=== PATIENT | male | born 1960 | race Caucasian/White ===

== ENCOUNTER 2021-01-28 03:29 | Emergency (ER) | payer MEDICARE ==
[2021-01-28] MEDS ORDERED: Kenalog-40 IM ONE (03:56)
[2021-01-28] MEDS ORDERED: Kenalog-40 ONE (03:58)
[2021-01-28] MEDS ORDERED: BENADRYL 25 MG CAPSULE PO ONE (04:01)
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
[2021-01-28] MEDS ORDERED: BENADRYL 25 MG CAPSULE ONE (04:04)
[2021-01-28 04:16] VITALS: BP 134/88; PULSE 77; O2SAT 96
== END 2021-01-28 04:14 | disposition home or self-care (01) ==
LOC: ED 03:29
DX: L30.9 Dermatitis, unspecified (principal)
CPT/HCPCS: 96372; 99283; J3301; A9270-GY

== ENCOUNTER 2021-02-10 16:54 | Emergency (ER) | payer MEDICARE ==
[2021-02-10 18:05] VITALS: O2SAT 99
[2021-02-10] MEDS ORDERED: TORAdol 30 mg Injection ONE (18:22)
[2021-02-10] MEDS ORDERED: solu-MEDROL 125 MG ONE (18:22)
[2021-02-10] MEDS: TORAdol 30 mg Injection IV ONE (18:25)
[2021-02-10] MEDS: solu-MEDROL 125 MG IV ONE (18:25)
[2021-02-10 18:52] LABS: Absolute Neutrophil Ct (ANC) 5.59 (1.4-6.9); BASOPHIL % 0.3 % (0.0-0.4); Basophil (Absolute #) 0.02 (0-0.4); Eosinophil (Absolute #) 0.16 (0-0.5); Hematocrit 40.3 % (42-50); Hemoglobin 13.2 gm/dl (12.5-18.0); Lymphocytes % 21.3 % (24.0-44.0); Mean Cell Volume 87.8 fl (78-100); Mean Corpuscular Hemoglobin 28.8 pg (26-32); Mean Corpuscular Hgb Concent. 32.8 g/dl (32-36); Mean Platelet Volume 8.6 fl (7.5-11.0); Monocyte (Absolute #) 0.52 (0.0-1.3); Monocytes % 6.5 % (0.0-12.0); Neutrophil % 69.9 % (36.0-66.0); Platelet Count 216 K/mm3 (150-450); Red Blood Count 4.59 M/mm3 (4.1-5.6); Red Cell Distribution Width 13.6 % (11.5-14.0)
[2021-02-10 18:56] LABS: ALKALINE PHOSPHATASE 108 U/L (38-126); ANION GAP 9.4 MEQ/L (5-15); BLOOD UREA NITROGEN 15 mg/dL (9-20); CHLORIDE 104 mmol/L (98-107); Calcium 9.1 mg/dL (8.4-10.2); Carbon Dioxide 29 mmol/L (22-30); Creatinine 1 0.76 mg/dL (0.66-1.25); EST GLOMERULAR FILTRATION RATE > 60.0 ML/MIN; Glucose 99 mg/dL (74-106); Potassium 3.7 mmol/L (3.5-5.1); SGOT/AST 48 U/L (17-59); SGPT/ALT 30 U/L (0-50); SODIUM 139 mmol/L (137-145); Total Protein 7.2 g/dL (6.3-8.2); Uric Acid 6.6 mg/dL (3.5-7.2)
--- NOTE | 2021-02-10 19:27 | XRAY ---
Exam: 3 views of the right wrist from 02/10/2021. Comparison: None. Indication: No known injury, right wrist pain on medial side for 4 days. Findings: AP, oblique, and lateral radiographs of the right wrist were obtained. I see no acute fracture or dislocation. The radiocarpal joint space appears unremarkable. At least a couple small intraosseous cysts are noted within the distal pole of the scaphoid bone. The remainder of the carpus appears unremarkable. The carpal joint spaces appear unremarkable. No periarticular soft tissue calcifications or radiopaque soft tissue foreign body is seen. There is a negative ulnar variance of about 1 mm. Impression: 1. No acute right wrist fracture or dislocation is seen. No other significant focal bone or joint abnormality is seen.
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
[2021-02-10 20:21] VITALS: BP 182/92; PULSE 78
== END 2021-02-10 20:27 | disposition home or self-care (01) ==
LOC: ED 16:54
DX: M10.9 Gout, unspecified (principal); R70.0 Elevated erythrocyte sedimentation rate
CPT/HCPCS: 36000; 36415; 73110; 80053; 84550; 85025; 85652; 86140; 96374; 96375; 99284; J1642; J1885; J2930

== ENCOUNTER 2022-05-29 21:22 | Observation (INO) | payer MEDICARE, OTHER ==
[2022-05-29] MEDS ORDERED: TYLENOL EXTRA STRENGTH 500 MG PO ONE (21:28)
[2022-05-29] MEDS ORDERED: TYLENOL EXTRA STRENGTH 500 MG ONE (21:32)
[2022-05-29 21:50] LABS: Absolute Neutrophil Ct (ANC) 8.03 x10^3/uL (1.4-6.9); Basophil (Absolute #) 0.02 x10^3/uL (0-0.4); Eosinophil (Absolute #) 0.09 x10^3/uL (0-0.5); Hematocrit 42.9 % (42-50); Hemoglobin 14.3 g/dL (12.5-18.0); Lymphocyte (Absolute #) 0.44 x10^3/uL (1.0-4.6); Mean Corpuscular Hemoglobin 28.7 pg (26-32); Mean Corpuscular Hgb Concent. 33.3 g/dL (32-36); Monocyte (Absolute #) 0.21 x10^3/uL (0.0-1.3); Monocytes % 2.4 % (0.0-12.0); Neutrophil % 91.1 % (36.0-66.0); Platelet Count 151 x10^3/uL (150-450); Red Blood Count 4.99 x10^6/uL (4.1-5.6); White Blood Count 8.8 x10^3/uL (4.0-10.5)
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
[2022-05-29 22:03] LABS: INR 1.1 (0.8-3.0); PROTIME 11.6 SECONDS (9.4-12.5)
[2022-05-29 22:09] LABS: ALBUMIN 4.3 g/dL (3.5-5.0); ALKALINE PHOSPHATASE 137 U/L (38-126); ANION GAP 11.6 MEQ/L (5-15); BLOOD UREA NITROGEN 12 mg/dL (9-20); CHLORIDE 101 mmol/L (98-107); Carbon Dioxide 27 mmol/L (22-30); Creatinine 1 0.92 mg/dL (0.66-1.25); EST GLOMERULAR FILTRATION RATE > 60.0 ML/MIN; Glucose 111 mg/dL (74-106); NT PRO BNP 86.6 pg/mL (0-900); Potassium 3.9 mmol/L (3.5-5.1); SGOT/AST 31 U/L (17-59); SGPT/ALT 20 U/L (0-50); SODIUM 135 mmol/L (137-145); Total Protein 7.5 g/dL (6.3-8.2)
[2022-05-29 23:14] LABS: INFLUENZA A NEGATIVE (NEGATIVE); INFLUENZA B NEGATIVE (NEGATIVE); RESPIRATORY SYNCTIAL VIRUS NEGATIVE (Negative); SARS-CoV-2 Xpert Express NEGATIVE (NEGATIVE)
[2022-05-30] MEDS ORDERED: ROCEPHIN 1 Gm-D5w 50 ml Bag** 1 G/50 ML IVPB IV STA (00:06)
[2022-05-30] MEDS ORDERED: Sodium Chloride 0.9% 1000 ML 1,000 ML IV STA (00:07)
[2022-05-30] MEDS ORDERED: ROCEPHIN 1 Gm-D5w 50 ml Bag** 1 G/50 ML IVPB IV ONE (00:34)
[2022-05-30] MEDS ORDERED: Sodium Chloride 0.9% 1000 ML 1,000 ML ONE (00:34)
[2022-05-30] MEDS ORDERED: Zofran 4 MG/2 ML VIAL IV PRN (01:08)
[2022-05-30] MEDS ORDERED: DUONEB 0.5-3 MG/3 ml Neb IH PRN (01:08)
[2022-05-30] MEDS: Sodium Chloride 0.9% 1000 ML 1,000 ML IV SCH ×2 (02:34→13:38)
[2022-05-30] MEDS: TYLENOL 325 MG PO PRN ×2 (03:21→14:38)
[2022-05-30] MEDS ORDERED: VENTOLIN COMMON CANISTER IH PRN (03:42)
[2022-05-30 05:47] LABS: Basophil (Absolute #) 0.03 x10^3/uL (0-0.4); Eosinophil % 0.1 % (0.00-5.0); Eosinophil (Absolute #) 0.02 x10^3/uL (0-0.5); Hematocrit 41.2 % (42-50); Hemoglobin 13.6 g/dL (12.5-18.0); Lymphocyte (Absolute #) 0.74 x10^3/uL (1.0-4.6); Mean Cell Volume 86.7 fL (78-100); Mean Corpuscular Hemoglobin 28.6 pg (26-32); Mean Platelet Volume 9.5 fL (7.5-11.0); Monocyte (Absolute #) 0.75 x10^3/uL (0.0-1.3); Monocytes % 5.1 % (0.0-12.0); Platelet Count 130 x10^3/uL (150-450); Red Blood Count 4.75 x10^6/uL (4.1-5.6); White Blood Count 14.7 x10^3/uL (4.0-10.5)
[2022-05-30 06:07] LABS: ALBUMIN 3.4 g/dL (3.5-5.0); ALKALINE PHOSPHATASE 106 U/L (38-126); ANION GAP 10.4 MEQ/L (5-15); BLOOD UREA NITROGEN 17 mg/dL (9-20); CHLORIDE 103 mmol/L (98-107); Calcium 7.9 mg/dL (8.4-10.2); Carbon Dioxide 25 mmol/L (22-30); EST GLOMERULAR FILTRATION RATE > 60.0 ML/MIN; Glucose 99 mg/dL (74-106); Potassium 4.2 mmol/L (3.5-5.1); SGOT/AST 22 U/L (17-59); SGPT/ALT 16 U/L (0-50); SODIUM 134 mmol/L (137-145); Total Protein 6.2 g/dL (6.3-8.2)
[2022-05-30] MEDS: PROTONIX 40 MG IV IV SCH (08:21)
[2022-05-30] MEDS: Zithromax 500 MG/ 250 ML NaCl Premix 500 MG/250 ML IVPB IV SCH (08:21)
[2022-05-30] MEDS ORDERED: Hydromorphone 1 mg/ml Injection IV ONE (08:47)
--- NOTE | 2022-05-30 08:52 | XRAY ---
Indication: Chest pain. Dyspnea. Multiple contiguous images obtained through the chest without contrast. Comparison: None Lung bases clear. Heart not enlarged. Lungs demonstrates moderate diffuse pulmonary emphysema, mild biapical pleural parenchymal fibrosis/scarring and small right lower lobe calcified granulomas. Moderate left lower lobe and lesser degree right upper lobe patchy airspace disease without effusion. Heart not enlarged with incidental right Port-A-Cath. Aorta is mildly arteriosclerotic without aneurysm. Tiny bilateral hilar calcified granulomas. No pathologic mediastinal lymphadenopathy. Bony thorax intact with minimal degenerative changes throughout the spine. Limited upper abdomen demonstrates cholecystectomy clips. Impression: 1. Left lower lobe and right upper lobe airspace disease. 2. Chronic findings including pulmonary emphysema, biapical fibrosis/scarring, arteriosclerotic disease, and old granulomatous disease. Comment: Preliminary interpretation made by C. No critical discrepancy.
--- NOTE | 2022-05-30 08:54 | XRAY ---
Indication: Dyspnea. Comparison: June 18, 2008 Portable chest again hyperinflated with new left perihilar and lesser degree right apical airspace disease without consolidation/large effusion. Stable peripheral right lung calcified granulomas. Heart not enlarged with new right Port-A-Cath. Bony thorax intact.
[2022-05-30] MEDS ORDERED: ENOXAPARIN SODIUM SQ SCH (10:00)
[2022-05-30] MEDS ORDERED: ROCEPHIN 1 Gm-D5w 50 ml Bag** 1 G/50 ML IVPB IV SCH ×2 (10:00→22:00)
[2022-05-30] MEDS: TORAdol 30 mg Injection IV SCH ×2 (11:05→21:39)
--- NOTE | 2022-05-30 14:23 | XRAY ---
Indication: Left rib pain. No known injury. Comparison: CT chest one day earlier. 2 view left ribs demonstrates CT proven minimal degenerative changes throughout visualized spine, left lower lobe airspace disease, tiny left base calcified granulomas, right Port-A-Cath, and cholecystectomy clips. No new/acute abnormalities.
[2022-05-30] MEDS ORDERED: MEDICATION INTERVENTION MC SCH (15:00)
[2022-05-30] MEDS ORDERED: NON-FORMULARY ITEM (Buprenorphine Hcl/Naloxone Hcl [Suboxone 8 Mg-2 Mg Sl Film] 1 EACH Fil SL SCH (15:00)
[2022-05-30 22:13] LABS: Appearance SLIGHTLY CLOUDY (CLEAR); Bilirubin SMALL (NEGATIVE); Glucose NEGATIVE (NEGATIVE); Ketones NEGATIVE (NEGATIVE); Protein,Urine Dip TRACE (Negative); RBC NEGATIVE Ery/ul (0-5); Specific Gravity >=1.030 (1.005-1.025); Urobilinogen 0.2 mg/dL (0-1)
[2022-05-30 22:14] LABS: Dipstick done @ ? MAIN LAB; Nitrite POSITIVE (NEGATIVE)
[2022-05-30 22:15] LABS: Urine Cultured Indicated? YES
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
[2022-05-30 22:18] LABS: Hyaline Casts 0-2 /LPF (0-2); Mucus MODERATE /HPF (NEGATIVE); RBC 0-2 /HPF (0-2); Sperm PRESENT /HPF (NEGATIVE); WBC 0-2 /HPF (0-5)
[2022-05-31 05:01] LABS: Absolute Neutrophil Ct (ANC) 7.84 x10^3/uL (1.4-6.9); Basophil (Absolute #) 0.02 x10^3/uL (0-0.4); Eosinophil % 2.6 % (0.00-5.0); Eosinophil (Absolute #) 0.25 x10^3/uL (0-0.5); Hematocrit 35.5 % (42-50); Hemoglobin 11.9 g/dL (12.5-18.0); Lymphocyte (Absolute #) 1.05 x10^3/uL (1.0-4.6); Mean Cell Volume 85.5 fL (78-100); Mean Corpuscular Hemoglobin 28.7 pg (26-32); Mean Corpuscular Hgb Concent. 33.5 g/dL (32-36); Mean Platelet Volume 9.7 fL (7.5-11.0); Monocyte (Absolute #) 0.32 x10^3/uL (0.0-1.3); Monocytes % 3.4 % (0.0-12.0); Neutrophil % 82.1 % (36.0-66.0); Platelet Count 122 x10^3/uL (150-450); Red Blood Count 4.15 x10^6/uL (4.1-5.6); Red Cell Distribution Width 14.4 % (11.5-14.0); White Blood Count 9.6 x10^3/uL (4.0-10.5)
[2022-05-31 05:27] LABS: ALBUMIN 2.7 g/dL (3.5-5.0); ALKALINE PHOSPHATASE 99 U/L (38-126); BLOOD UREA NITROGEN 21 mg/dL (9-20); CHLORIDE 109 mmol/L (98-107); Calcium 7.7 mg/dL (8.4-10.2); Carbon Dioxide 23 mmol/L (22-30); Creatinine 1 0.74 mg/dL (0.66-1.25); EST GLOMERULAR FILTRATION RATE > 60.0 ML/MIN; Glucose 96 mg/dL (74-106); SGOT/AST 15 U/L (17-59); SGPT/ALT 12 U/L (0-50); SODIUM 137 mmol/L (137-145); Total Protein 5.3 g/dL (6.3-8.2)
[2022-05-31 05:31] LABS: Potassium 3.2 mmol/L (3.5-5.1)
[2022-05-31] MEDS: Sodium Chloride 0.9% 1000 ML 1,000 ML IV SCH (06:09)
[2022-05-31 06:59] VITALS: O2SAT 98
[2022-05-31 07:06] VITALS: BP 147/67; PULSE 85
[2022-05-31] MEDS ORDERED: Klor Con PO ONE (08:39)
[2022-05-31] MEDS: PROTONIX 40 MG IV IV SCH (09:33)
[2022-05-31] MEDS: Zithromax 500 MG/ 250 ML NaCl Premix 500 MG/250 ML IVPB IV SCH (09:33)
[2022-05-31] MEDS: TORAdol 30 mg Injection IV SCH (09:33)
== END 2022-05-31 09:27 | disposition home or self-care (01) ==
LOC: ED 21:22 → MED SURG 05-30 01:57
PROVIDERS: ADMIT Family Medicine; ATTEND Family Medicine
DX: J18.9 Pneumonia, unspecified organism (principal); E86.9 Volume depletion, unspecified; R07.9 Chest pain, unspecified; R19.7 Diarrhea, unspecified; R53.83 Other fatigue; I10 Essential (primary) hypertension; S29.9XXA Unspecified injury of thorax, initial encounter; Z79.899 Other long term (current) drug therapy; Z20.828 Contact with and (suspected) exposure to other viral communicable diseases; Z72.0 Tobacco use
CPT/HCPCS: 0241U; 36000; 36415; 71045; 71100; 71250; 80053; 81015; 83605; 83880; 84484; 85025; 85610; 85730; 87040; 87086; 93005; 93268; 94760; 96365; 99285; G0378; J0456; J0696; J1170; J1642; J1885; A9270-GY

== ENCOUNTER 2022-06-10 19:45 | Emergency (ER) | payer MEDICARE, OTHER ==
[2022-06-10] MEDS ORDERED: SUBLIMAZE 100 MCG/2 ML IV ONE (20:19)
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
[2022-06-10] MEDS ORDERED: Zofran 4 MG/2 ML VIAL IV ONE (20:20)
[2022-06-10] MEDS ORDERED: Zofran 4 MG/2 ML VIAL ONE (20:25)
[2022-06-10] MEDS ORDERED: SUBLIMAZE 100 MCG/2 ML ONE (20:26)
[2022-06-10 20:31] LABS: Absolute Neutrophil Ct (ANC) 3.13 x10^3/uL (1.4-6.9); Basophil (Absolute #) 0.03 x10^3/uL (0-0.4); Eosinophil % 6.7 % (0.00-5.0); Eosinophil (Absolute #) 0.35 x10^3/uL (0-0.5); Hematocrit 37.3 % (42-50); Hemoglobin 12.3 g/dL (12.5-18.0); Lymphocyte (Absolute #) 1.35 x10^3/uL (1.0-4.6); Lymphocytes % 25.8 % (24.0-44.0); Mean Cell Volume 86.1 fL (78-100); Mean Corpuscular Hemoglobin 28.4 pg (26-32); Mean Platelet Volume 8.5 fL (7.5-11.0); Monocyte (Absolute #) 0.34 x10^3/uL (0.0-1.3); Monocytes % 6.5 % (0.0-12.0); Neutrophil % 59.8 % (36.0-66.0); Platelet Count 374 x10^3/uL (150-450); Red Blood Count 4.33 x10^6/uL (4.1-5.6); Red Cell Distribution Width 12.8 % (11.5-14.0); White Blood Count 5.2 x10^3/uL (4.0-10.5)
[2022-06-10] MEDS ORDERED: TORAdol 30 mg Injection IM ONE (20:31)
[2022-06-10 21:04] LABS: ALBUMIN 3.8 g/dL (3.5-5.0); ALKALINE PHOSPHATASE 133 U/L (38-126); ANION GAP 12.2 MEQ/L (5-15); BLOOD UREA NITROGEN 20 mg/dL (9-20); CHLORIDE 105 mmol/L (98-107); Calcium 8.6 mg/dL (8.4-10.2); Carbon Dioxide 26 mmol/L (22-30); Creatinine 1 0.78 mg/dL (0.66-1.25); EST GLOMERULAR FILTRATION RATE > 60.0 ML/MIN; Glucose 98 mg/dL (74-106); NT PRO BNP 72.7 pg/mL (0-900); SGOT/AST 20 U/L (17-59); SGPT/ALT 17 U/L (0-50); SODIUM 139 mmol/L (137-145); Total Protein 7.2 g/dL (6.3-8.2)
[2022-06-10 21:09] LABS: INFLUENZA A NEGATIVE (NEGATIVE); INFLUENZA B NEGATIVE (NEGATIVE); RESPIRATORY SYNCTIAL VIRUS NEGATIVE (Negative); SARS-CoV-2 Xpert Express NEGATIVE (NEGATIVE)
[2022-06-10 21:12] LABS: INR 1.13 (0.8-3.0); PROTIME 11.8 SECONDS (9.4-12.5)
[2022-06-10 22:20] VITALS: BP 140/85; PULSE 70
--- NOTE | 2022-06-10 22:32 | XRAY ---
Indication: Chest pain, cough, dyspnea. Elevated d-dimer. Multiple contiguous axial images obtained through the chest using 100 cc Isovue 370 contrast and PE protocol. Comparison: May 29, 2022 Good opacification of the pulmonary arteries to include the lobar and segmental branches. No pulmonary embolus. Heart not enlarged again with right Port-A-Cath. Aorta is mildly arteriosclerotic without aneurysm/dissection. Again tiny bilateral hilar calcified granulomas. No pathologic mediastinal/hilar lymphadenopathy. Lungs again demonstrates pulmonary emphysema, biapical pleural parenchymal fibrosis/scarring and small right lower lobe calcified granulomas. Left lower and lesser degree right upper lobe again demonstrates patchy airspace disease, both less than before. No effusion or pneumothorax. Bony thorax intact again with minimal degenerative changes of the spine. Limited upper abdomen again demonstrates cholecystectomy clips. Impression: 1. Negative pulmonary embolus. 2. Improving left lower and right upper lobe pneumonia. 3. Again chronic findings including pulmonary emphysema, biapical fibrous/scarring, arteriosclerotic disease, and old granulomatous disease.. Comment: Preliminary interpretation made by C. No critical discrepancy.
[2022-06-11 01:00] VITALS: O2SAT 97
[2022-06-11 05:06] LABS: PTT 115.3 SECONDS (25.1-36.5)
== END 2022-06-10 22:31 | disposition home or self-care (01) ==
LOC: ED 19:45
DX: J18.9 Pneumonia, unspecified organism (principal); R07.81 Pleurodynia; R06.00 Dyspnea, unspecified; R05.9 Cough, unspecified; I10 Essential (primary) hypertension; J44.9 Chronic obstructive pulmonary disease, unspecified; Z72.0 Tobacco use; Z79.891 Long term (current) use of opiate analgesic; Z20.828 Contact with and (suspected) exposure to other viral communicable diseases
CPT/HCPCS: 0241U; 36000; 36415; 71260; 80053; 83880; 84484; 85025; 85610; 85730; 93005; 96374; 99284; J1642; J2405; J3010

== ENCOUNTER 2022-06-27 16:47 | Emergency (ER) | payer MEDICARE, OTHER ==
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
[2022-06-27] MEDS ORDERED: MORPHINE SULFATE 4 MG INJ IV ONE (17:42)
[2022-06-27] MEDS ORDERED: Zofran 4 MG/2 ML VIAL IV ONE (17:42)
[2022-06-27 17:54] LABS: Absolute Neutrophil Ct (ANC) 4.91 x10^3/uL (1.4-6.9); Basophil (Absolute #) 0.02 x10^3/uL (0-0.4); Eosinophil % 9.2 % (0.00-5.0); Eosinophil (Absolute #) 0.65 x10^3/uL (0-0.5); Hemoglobin 12.2 g/dL (12.5-18.0); Lymphocyte (Absolute #) 1.09 x10^3/uL (1.0-4.6); Lymphocytes % 15.4 % (24.0-44.0); Mean Corpuscular Hemoglobin 28.4 pg (26-32); Mean Platelet Volume 9.7 fL (7.5-11.0); Monocyte (Absolute #) 0.37 x10^3/uL (0.0-1.3); Monocytes % 5.2 % (0.0-12.0); Neutrophil % 69.5 % (36.0-66.0); Platelet Count 166 x10^3/uL (150-450); Red Cell Distribution Width 13.2 % (11.5-14.0); White Blood Count 7.1 x10^3/uL (4.0-10.5)
[2022-06-27] MEDS ORDERED: Zofran 4 MG/2 ML VIAL ONE (17:56)
[2022-06-27] MEDS ORDERED: MORPHINE SULFATE 4 MG INJ ONE (17:56)
[2022-06-27 18:00] LABS: ALBUMIN 4.1 g/dL (3.5-5.0); ALKALINE PHOSPHATASE 128 U/L (38-126); ANION GAP 12.5 MEQ/L (5-15); BLOOD UREA NITROGEN 13 mg/dL (9-20); CHLORIDE 101 mmol/L (98-107); Carbon Dioxide 28 mmol/L (22-30); Creatinine 1 0.85 mg/dL (0.66-1.25); EST GLOMERULAR FILTRATION RATE > 60.0 ML/MIN; Glucose 113 mg/dL (74-106); Potassium 3.7 mmol/L (3.5-5.1); SGOT/AST 25 U/L (17-59); SGPT/ALT 19 U/L (0-50); SODIUM 138 mmol/L (137-145); Total Protein 7.4 g/dL (6.3-8.2)
[2022-06-27] MEDS ORDERED: Hydromorphone 1 mg/ml Injection IV ONE (20:16)
[2022-06-27] MEDS ORDERED: Hydromorphone 1 mg/ml Injection ONE (20:37)
--- NOTE | 2022-06-27 23:45 | ANESPROCNO ---
Anesthesia Procedure Note - Anesthesia Procedure Note Procedure Date:: 06/27/22 Procedure Time:: 22:50 Anesthesia Procedure Note: Consulted for IV access. Informed consent and risks/benefits of ultrasound guided midline IV discussed with patient. Pt. agrees to proceed. LUE prepped and draped 2%CHG70%IPA. Allowed 3 minute dry time. Using all standard sterile barriers and precautions, target vessel identified left brachial vein. Skin and subq tissue localized above target vessel with 5cc 1% lidocaine. Left brachial vein accessed with 21ga X 7 cm needle. A 0.46mm nitinol wire placed through needle into target vessel. Wire placement confirmed in both short and long axis of vessel. Needle withdrawn. A 4F X 10 cm co-axial catheter placed easily over wire into left brachial vein and wire withdrawn. Catheter with positive venous blood return and flushes easily. A sterile occlusive dressing was applied. Patient tolerated procedure well. No complications.
[2022-06-28] MEDS ORDERED: ROCEPHIN 1 Gm-D5w 50 ml Bag** 1 G/50 ML IVPB IV STA (00:37)
[2022-06-28] MEDS ORDERED: ROCEPHIN 1 Gm-D5w 50 ml Bag** 1 G/50 ML IVPB IV ONE (00:39)
[2022-06-28 01:13] VITALS: BP 121/82; PULSE 73; O2SAT 97
--- NOTE | 2022-06-28 08:48 | XRAY ---
Indication: Right chest pain. Elevated d-dimer. Multiple contiguous axial images obtained through the chest using 100 cc Isovue 370 contrast and PE protocol. Comparison: June 10, 2022 Again good opacification of the pulmonary arteries to include the lobar and segmental branches. Again no pulmonary embolus. Heart is not enlarged. Aorta remains mildly etcher sclerotic without aneurysm/dissection. Again tiny bilateral hilar calcified granulomas. No pathologic mediastinal/hilar lymphadenopathy. New small hiatal hernia. Lungs demonstrates moderate clearing of previous left lower lobe airspace disease with minimal residual. New tiny left effusion. Remaining lungs again demonstrates chronic findings including pulmonary emphysema, biapical pleural, scattered fibrosis/scarring, and calcified granulomas. Impression: 1. Continued negative pulmonary embolus. 2. Continued resolving left lower lobe airspace disease with new tiny effusion. 3. Chronic findings including pulmonary emphysema, pleural thickening, fibrosis/scarring, and old granulomatous disease. Comment: Preliminary interpretation made by [facility]. No critical discrepancy.
--- NOTE | 2022-06-28 08:50 | XRAY ---
Indication: Right chest pain. Pneumonia. Comparison: May 29, 2022 Portable chest again demonstrates COPD with improving previous left perihilar airspace disease with minimal residual. Remaining heart and lungs unremarkable again with incidental calcified granulomas and right Port-A-Cath. No new cardiopulmonary abnormalities.
== END 2022-06-28 01:18 | disposition home or self-care (01) ==
LOC: ED 16:47
DX: R91.8 Other nonspecific abnormal finding of lung field (principal); R05.9 Cough, unspecified; R07.9 Chest pain, unspecified; I10 Essential (primary) hypertension; J44.9 Chronic obstructive pulmonary disease, unspecified; Z72.0 Tobacco use; Z79.891 Long term (current) use of opiate analgesic
CPT/HCPCS: 36000; 36410; 36415; 71045; 71260; 80053; 84484; 85025; 85379; 93005; 93041; 94760; 96374; 96375; 99284; J0696; J1170; J1642; J2270; J2405

== ENCOUNTER 2022-12-03 14:39 | Emergency (ER) | payer MEDICARE, OTHER ==
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
[2022-12-03] MEDS ORDERED: Ativan 2 MG/1 ML VIAL IV ONE (15:11)
[2022-12-03] MEDS ORDERED: Ativan 2 MG/1 ML VIAL ONE (15:14)
[2022-12-03 15:38] LABS: Absolute Neutrophil Ct (ANC) 6.62 x10^3/uL (1.4-6.9); BASOPHIL % 0.2 % (0.0-0.4); Basophil (Absolute #) 0.02 x10^3/uL (0-0.4); Eosinophil (Absolute #) 0.25 x10^3/uL (0-0.5); Hematocrit 41.8 % (42-50); Hemoglobin 13.9 g/dL (12.5-18.0); IMMATURE GRAN # 0.03 x10^3u/L (0.00-0.03); IMMATURE GRAN % 0.4 % (0.00-0.4); Lymphocyte (Absolute #) 0.95 x10^3/uL (1.0-4.6); Lymphocytes % 11.6 % (24.0-44.0); Mean Cell Volume 84.3 fL (78-100); Mean Corpuscular Hgb Concent. 33.3 g/dL (32-36); Monocyte (Absolute #) 0.34 x10^3/uL (0.0-1.3); Monocytes % 4.1 % (0.0-12.0); Neutrophil % 80.7 % (36.0-66.0); Platelet Count 168 x10^3/uL (150-450); Red Blood Count 4.96 x10^6/uL (4.1-5.6); Red Cell Distribution Width 13.7 % (11.5-14.0); White Blood Count 8.2 x10^3/uL (4.0-10.5)
[2022-12-03 15:54] LABS: ALBUMIN 4.3 g/dL (3.5-5.0); ALKALINE PHOSPHATASE 129 U/L (38-126); ANION GAP 11.2 MEQ/L (5-15); BLOOD UREA NITROGEN 18 mg/dL (9-20); CHLORIDE 107 mmol/L (98-107); Carbon Dioxide 26 mmol/L (22-30); Creatinine 1 0.86 mg/dL (0.66-1.25); EST GLOMERULAR FILTRATION RATE > 60.0 ML/MIN; Glucose 121 mg/dL (74-106); Potassium 3.9 mmol/L (3.5-5.1); SGOT/AST 30 U/L (17-59); SGPT/ALT 21 U/L (0-50); SODIUM 139 mmol/L (137-145); Total Protein 7.8 g/dL (6.3-8.2)
[2022-12-03] MEDS ORDERED: Ketamine HCl 50 MG/ML IV ONE (16:13)
[2022-12-03] MEDS ORDERED: TORAdol 30 mg Injection ONE (17:06)
[2022-12-03] MEDS ORDERED: TORAdol 30 mg Injection IV ONE (17:07)
[2022-12-03] MEDS ORDERED: BACIGUENT PACKET ONE (17:22)
[2022-12-03] MEDS ORDERED: BACIGUENT PACKET TP ONE (17:23)
[2022-12-03 17:39] VITALS: BP 140/87; PULSE 78; O2SAT 96
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
== END 2022-12-03 17:40 | disposition home or self-care (01) ==
LOC: ED 14:39
DX: S52.502A Unspecified fracture of the lower end of left radius, initial encounter for closed fracture (principal); S80.812A Abrasion, left lower leg, initial encounter; S60.511A Abrasion of right hand, initial encounter; S00.01XA Abrasion of scalp, initial encounter; V86.55XA Driver of 3- or 4- wheeled all-terrain vehicle (ATV) injured in nontraffic accident, initial encounter; R51.9 Headache, unspecified; M54.2 Cervicalgia; M25.551 Pain in right hip; M25.552 Pain in left hip; M25.562 Pain in left knee; I10 Essential (primary) hypertension; D75.1 Secondary polycythemia; Z79.891 Long term (current) use of opiate analgesic; Z72.0 Tobacco use
CPT/HCPCS: 29125; 36000; 36415; 70450; 72125; 72192; 73110; 73130; 73560; 80053; 85025; 96374; 96375; 99285; J1642; J1885; J2060; A9270-GY

== ENCOUNTER 2022-12-15 21:28 | Emergency (ER) | payer MEDICARE, OTHER ==
[2022-12-15] MEDS ORDERED: TORAdol 30 mg Injection IM ONE (23:50)
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
[2022-12-15] MEDS ORDERED: TORAdol 30 mg Injection ONE (23:54)
[2022-12-16 01:11] VITALS: BP 142/88; PULSE 88; O2SAT 95
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
== END 2022-12-16 01:06 | disposition left against medical advice (07) ==
LOC: ED 21:28
DX: S72.112A Displaced fracture of greater trochanter of left femur, initial encounter for closed fracture (principal); V86.99XA Unspecified occupant of other special all-terrain or other off-road motor vehicle injured in nontraffic accident, initial encounter; I10 Essential (primary) hypertension; J44.9 Chronic obstructive pulmonary disease, unspecified; Z72.0 Tobacco use; Z79.891 Long term (current) use of opiate analgesic
CPT/HCPCS: 73700; 96372; 99283; J1885

== ENCOUNTER 2024-01-23 12:18 | Emergency (ER) | payer MEDICARE, OTHER ==
[2024-01-23 12:33] VITALS: PULSE 107; TEMP 97.3
[2024-01-23] MEDS ORDERED: TORAdol 30 mg Injection ONE (13:18)
[2024-01-23] MEDS: TORAdol 30 mg Injection IM ONE (13:20)
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
[2024-01-23 14:03] VITALS: BP 146/94
--- NOTE | 2024-01-23 14:14 | XRAY ---
Indication: Right back/hip pain. Multiple contiguous axial images obtained through the abdomen and pelvis without contrast. Comparison: None Lung bases demonstrates incompletely visualized moderate left and tiny right effusions with compressive atelectasis. Incidental small right lower lobe calcified granuloma. Heart not enlarged. Stomach distended with food/fluid. Noncontrasted stomach and bowel loops appear nonobstructed. Appendix not visualized. Mild scattered colonic diverticulosis greatest in sigmoid without diverticulitis. Right kidney demonstrates nonobstructing punctate calculus. Previous cholecystectomy. No free fluid/air. Remaining liver, pancreas, spleen, adrenal glands, kidneys, ureters, and bladder are unremarkable for noncontrast exam. Mild scattered aortoiliac calcifications without AAA. Osseous structures intact with moderate L4-S1 degenerative changes. Right buttock demonstrates metallic shrapnels. Impression: 1. Incompletely visualized moderate left and tiny right effusions with compressive atelectasis. 2. Chronic findings including colonic diverticulosis, nonobstructing right renal micro-calculus, arteriosclerotic disease, L4-S1 degenerative disc disease, and right buttock metallic shrapnel. 3. Remaining CT abdomen/pelvis without contrast exam is negative.
[2024-01-23 14:36] VITALS: O2SAT 97
== END 2024-01-23 14:42 | disposition home or self-care (01) ==
LOC: ED 12:18
DX: M25.552 Pain in left hip (principal); M54.50 Low back pain, unspecified; J90 Pleural effusion, not elsewhere classified; J84.10 Pulmonary fibrosis, unspecified; K57.30 Diverticulosis of large intestine without perforation or abscess without bleeding; N20.0 Calculus of kidney; M47.9 Spondylosis, unspecified
CPT/HCPCS: 74176; 96372; 99283; J1885

== ENCOUNTER 2024-05-18 16:22 | Emergency (ER) | payer MEDICARE, OTHER ==
[2024-05-18 16:31] VITALS: TEMP 97.4
[2024-05-18] MEDS ORDERED: DUONEB 0.5-3 MG/3 ml Neb IH ONE (16:50)
[2024-05-18] MEDS: DUONEB 0.5-3 MG/3 ml Neb IH ONE (16:52)
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
[2024-05-18] MEDS ORDERED: Zofran 4 MG/2 ML VIAL ONE (17:11)
[2024-05-18] MEDS ORDERED: MORPHINE SULFATE 4 MG INJ ONE (17:11)
[2024-05-18 17:13] LABS: BASOPHIL % 0.4 % (0.2-1.2); Basophil (Absolute #) 0.03 x10^3/uL (0.01-0.08); Eosinophil % 5.6 % (0.8-7.0); Eosinophil (Absolute #) 0.38 x10^3/uL (0.04-0.54); Hematocrit 43.6 % (40.1-51.0); Hemoglobin 14.5 g/dL (13.7-17.5); IMMATURE GRAN # 0.04 x10^3u/L (0.001-0.031); IMMATURE GRAN % 0.6 % (0.001-0.429); Lymphocyte (Absolute #) 1.15 x10^3/uL (1.32-3.57); Lymphocytes % 16.9 % (21.8-53.1); Mean Cell Volume 83.8 fL (79.0-92.2); Mean Corpuscular Hemoglobin 27.9 pg (25.7-32.2); Mean Corpuscular Hgb Concent. 33.3 g/dL (32.3-36.5); Mean Platelet Volume 9.5 fL (9.4-12.4); Monocyte (Absolute #) 0.39 x10^3/uL (0.30-0.82); Monocytes % 5.7 % (5.3-12.2); Neutrophil % 70.8 % (34.0-67.9); Platelet Count 228 x10^3/uL (163-337); Red Cell Distribution Width 14.2 % (11.6-14.4); White Blood Count 6.8 x10^3/uL (4.23-9.07)
[2024-05-18] MEDS: MORPHINE SULFATE 4 MG INJ IV ONE (17:14)
[2024-05-18] MEDS: Zofran 4 MG/2 ML VIAL IV ONE (17:14)
[2024-05-18 17:27] LABS: ANION GAP 13.8 MEQ/L (5-15); BILIRUBIN,TOTAL 0.5 mg/dL (0.2-1.3); Calcium 9.2 mg/dL (8.4-10.2); Creatinine 1 0.99 mg/dL (0.66-1.25); EST GLOMERULAR FILTRATION RATE 86.1 ML/MIN; MAGNESIUM 1.9 mg/dL (1.6-2.3); Total Protein 7.3 g/dL (6.3-8.2)
--- NOTE | 2024-05-18 18:58 | XRAY ---
CLINICAL HISTORY: sob/cp COMPARISON: no prior studies. TECHNIQUE: X-ray images of the chest were obtained in posteroanterior (PA) projection. FINDINGS: Pulmonary Parenchyma: Insitu inserted a CV line. Blunted both costo-phrenic angles, denoting minimal pleural effusion. accentuated broncho vascular markings. bilateral lower lung zone reticulations. Lungs are otherwise clear bilaterally. No evidence of consolidation, collapse, or focal opacities. No pulmonary nodules were identified. No evidence of pleural effusion or pleural thickening. Heart and Mediastinum: Heart size and shape are normal. No mediastinal widening or masses. No hilar or mediastinal lymphadenopathy. undefined hyperlucent retrocardiac shadow. straight left cardiac border with a prominent pulmonary cone. Bony Thorax: The bony thorax appears intact without fractures or deformities. The dorsal spine shows right-side scoliosis(Hernandez's angle = 27 degrees) and spondylosis. Soft Tissues: Soft tissues overlying the chest wall are unremarkable. IMPRESSION: 1. Blunted both costo-phrenic angles, possibly minimal pleural effusions. 2. Accentuated broncho-vascular markings. 3. Bilateral lower lung zones interstitial shadows and reticulations. No infiltrates. Mild COPD. Electronically Signed by: Martha Lockhart MD. (05/18/2024 18:54:26 EDT)
[2024-05-18 19:50] VITALS: PULSE 82
[2024-05-18 20:09] VITALS: RESP 10
[2024-05-18 21:27] VITALS: BP 151/89
[2024-05-18 22:15] VITALS: O2SAT 97
--- NOTE | 2024-05-18 22:20 | XRAY ---
CLINICAL HISTORY: right side pain COMPARISON: 05/18/2024 reviewed TECHNIQUE: Contiguous 3.[address] images of the chest were acquired without administration of intravenous contrast. Coronal and sagittal reconstructions were obtained.One of the following dose reduction techniques were utilized for this exam: Automated exposure control, adjustment of the mA and/or kV according to patient size, use of iterative reconstruction FINDINGS: Right-sided Port-A-Cath with its tip normal cavoatrial level. Chronic small pneumothorax noted about 1-2 percent on the right side. Paraseptal emphysematous changes are seen bilaterally more on the right side A small area of fibrosis is seen in the right apical region, and the septa is thickened. Minimal pleural thickening with basal plate atelectasis on the right side. Minimal to mild left-sided pleural effusion with the subtle enhancement of the pleura, A small subsegmental consolidation and collapse noted with few focal calcific nodules Two calcified nodules are seen in the right lung lower lobe superior segment measuring 7.7 x 5.9 mm and 5.0 x 5.4 mm. A small ground glass nodule/opacity in the left lower lobe basal segment. Bilateral pulmonary vessels show no evidence of thrombosis/or embolism. No abnormal or enlarged lymphadenopathy was noted The upper part of the left adrenal gland appears slightly bulky compared to the right side and measures 1.3 x 1.2 cm. surgical clips in the gallbladder fossa representing cholecystectomy. The stomach is collapsed and cannot be commented. The rest of the abdomen is within normal limits. mild degenerative changes in the bones however no lytic or sclerotic lesion seen. IMPRESSION: 1. Right-sided Port-A-Cath with its tip normal cavoatrial level. 2. paraseptal emphysematous changes bilaterally. 3. A small chronic pneumothorax on the right side 1-2 percent. 4. Minimal to mild left-sided pleural effusion with minimal enhancement of the pleura. 5. A small subsegmental consolidation and collapse were noted with few focal calcific nodules 6. Two calcified nodules in the right lower lobe. 7. The upper part of the left adrenal gland appears slightly bulky compared to the right side and measures 1.3 x 1.2 cm. 8. Advise clinical correlation and follow-up Electronically Signed by: Martha Lockhart MD. (05/18/2024 22:17:08 EDT)
== END 2024-05-18 21:29 | disposition left against medical advice (07) ==
LOC: ED 16:22
DX: R07.9 Chest pain, unspecified (principal); J90 Pleural effusion, not elsewhere classified; R06.02 Shortness of breath; I10 Essential (primary) hypertension; Z79.891 Long term (current) use of opiate analgesic; Z79.899 Other long term (current) drug therapy; Z72.0 Tobacco use
CPT/HCPCS: 36000; 36415; 71045; 71260; 80053; 83605; 83735; 83880; 84484; 85025; 85379; 87040; 93005; 94640; 96374; 96375; 99284; J1642; J2270; J2405; A9270-GY

== ENCOUNTER 2024-05-28 21:44 | Emergency (ER) | payer MEDICARE, OTHER ==
[2024-05-28 22:00] VITALS: BP 176/100; PULSE 102; RESP 16; TEMP 98.4; O2SAT 95
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
== END 2024-05-28 22:50 | disposition home or self-care (01) ==
LOC: ED 21:44
DX: R78.81 Bacteremia (principal); I10 Essential (primary) hypertension; Z79.891 Long term (current) use of opiate analgesic; Z79.899 Other long term (current) drug therapy; Z72.0 Tobacco use
CPT/HCPCS: 36415; 87040; 99282

== ENCOUNTER 2025-01-03 22:02 | Emergency (ER) | payer MEDICARE, OTHER ==
[2025-01-03 22:06] VITALS: TEMP 97.3
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
[2025-01-03 22:36] LABS: Absolute Neutrophil Ct (ANC) 3.55 x10^3/uL (1.78-5.38); BASOPHIL % 0.7 % (0.2-1.2); Basophil (Absolute #) 0.04 x10^3/uL (0.01-0.08); Eosinophil % 7.6 % (0.8-7.0); Eosinophil (Absolute #) 0.44 x10^3/uL (0.04-0.54); Hematocrit 45.4 % (40.1-51.0); Hemoglobin 15.3 g/dL (13.7-17.5); IMMATURE GRAN # 0.03 x10^3u/L (0.001-0.031); IMMATURE GRAN % 0.5 % (0.001-0.429); Lymphocyte (Absolute #) 1.43 x10^3/uL (1.32-3.57); Lymphocytes % 24.6 % (21.8-53.1); Mean Cell Volume 81.8 fL (79.0-92.2); Mean Corpuscular Hemoglobin 27.6 pg (25.7-32.2); Mean Corpuscular Hgb Concent. 33.7 g/dL (32.3-36.5); Mean Platelet Volume 9.3 fL (9.4-12.4); Monocyte (Absolute #) 0.33 x10^3/uL (0.30-0.82); Monocytes % 5.7 % (5.3-12.2); Neutrophil % 60.9 % (34.0-67.9); Platelet Count 187 x10^3/uL (163-337); Red Blood Count 5.55 x10^6/uL (4.63-6.08); Red Cell Distribution Width 14.2 % (11.6-14.4); White Blood Count 5.8 x10^3/uL (4.23-9.07)
[2025-01-03 22:47] LABS: ALBUMIN 4.2 g/dL (3.5-5.0); ANION GAP 14.6 MEQ/L (5-15); BILIRUBIN,TOTAL 0.8 mg/dL (0.2-1.3); Calcium 8.8 mg/dL (8.4-10.2); Creatinine 1 0.83 mg/dL (0.66-1.25); EST GLOMERULAR FILTRATION RATE 98.3 ML/MIN; MAGNESIUM 1.9 mg/dL (1.6-2.3); Potassium 3.6 mmol/L (3.5-5.1); Total Protein 7.5 g/dL (6.3-8.2)
[2025-01-03] MEDS ORDERED: Sodium Chloride 0.9% 1000 ML 1,000 ML ONE (23:06)
[2025-01-03] MEDS: Sodium Chloride 0.9% 500 ML 500 ML IV SCH (23:11)
[2025-01-03] MEDS: Sodium Chloride 0.9% 1000 ML 1,000 ML IV SCH (23:11)
[2025-01-03 23:21] LABS: INFLUENZA A NEGATIVE (NEGATIVE); INFLUENZA B NEGATIVE (NEGATIVE); RESPIRATORY SYNCTIAL VIRUS NEGATIVE (NEGATIVE); SARS-CoV-2 Xpert Express NEGATIVE (NEGATIVE)
--- NOTE | 2025-01-04 01:23 | XRAY ---
CLINICAL HISTORY: Shortness of breath COMPARISON: TECHNIQUE: Contiguous axial images were obtained from the neck base through the upper abdomen following intravenous administration of iodinated contrast material. Angiographic images were processed, 3D MIP images were acquired for interpretation. If IV contrast material had not been administered, the likelihood of detecting abnormalities relevant to the patient's condition would have been substantially decreased. Coronal and sagittal 3-D MIPs were likewise performed and indicated to increase the sensitivity of detectin diffuse clinically relevant pathology. CT scan was performed according to ALARA (as low as reasonable achievable). FINDINGS: Adequate contrast bolus without evidence of pulmonary embolism. The central airways are patent. Honeycombing and subpleural lung cysts noted in bilateral upper lobes Fibrocavitatory changes noted in right lung apex Peripheral consildation patch with few calcific foci within noted in superior segment of left lower lobe Right minimal pleural effusion and left mild empyema noted. The heart, aorta, and pulmonary arteries are of normal size and configuration. There are no appreciable coronary artery and aortic atherosclerotic calcifications. No pericardial effusion is identified. The thyroid is unremarkable. No mediastinal, hilar, or axillary lymphadenopathy is noted. No suspicious lytic or sclerotic osseous lesions are identified. IMPRESSION: 1 No evidence of pulmonary embolism 2 Right minimal pleural effusion and left mild empyema noted. 3 Honeycombing and subpleural lung cysts noted in bilateral upper lobes 4 Fibrocavitatory changes noted in right lung apex: post infective sequelae 5 Peripheral consildation patch with few calcific foci within noted in superior segment of left lower lobe Resolution of right pneumothorax, otherwise stable Electronically Signed by: Shane Hoskins MD. (01/04/2025 01:18:01 EDT)
[2025-01-04] MEDS ORDERED: Sterile H2O 10 ml IJ ONE (01:43)
[2025-01-04] MEDS ORDERED: solu-MEDROL ONE (01:43)
[2025-01-04] MEDS ORDERED: Lasix 40 MG/4 ML ONE (01:43)
[2025-01-04] MEDS ORDERED: ROCEPHIN 1 GM / 100 ML NaCl 1 GM/100 ML IVPB IV ONE (01:44)
[2025-01-04] MEDS: solu-MEDROL 125 MG, Sterile H2O 10 ml 10 ML IV ONE (01:47)
[2025-01-04] MEDS: ROCEPHIN 1 GM / 100 ML NaCl 1 GM/100 ML IVPB IV ONE (01:48)
[2025-01-04] MEDS: Lasix 40 MG/4 ML IV ONE (01:48)
[2025-01-04 02:09] VITALS: BP 123/84; PULSE 78; RESP 18; O2SAT 94
== END 2025-01-04 02:32 | disposition home or self-care (01) ==
LOC: ED 22:02
DX: J90 Pleural effusion, not elsewhere classified (principal); J18.1 Lobar pneumonia, unspecified organism; R06.02 Shortness of breath; J86.9 Pyothorax without fistula; R05.9 Cough, unspecified; I10 Essential (primary) hypertension; Z86.718 Personal history of other venous thrombosis and embolism; Z79.52 Long term (current) use of systemic steroids; Z79.899 Other long term (current) drug therapy
CPT/HCPCS: 0241U; 36415; 71260; 80053; 83605; 83735; 83880; 84484; 85025; 85379; 87040; 93005; 96361; 96374; 96375; 99285; J0696; J1642; J1940; J2919